=== PATIENT | male | born 2000 | race Two or more races ===

== ENCOUNTER 2022-06-19 08:27 | Emergency (ER) | payer MEDICAID, SELFPAY ==
[2022-06-19 08:36] VITALS: BP 147/64; PULSE 108; RESP 16; TEMP 37.9; O2SAT 99; BMI 22.8
--- NOTE | 2022-06-19 08:55 | ED_ITS ---
HPI - URI/Sore Throat General Chief Complaint: Upper Respiratory Symptoms Stated Complaint: sore throat, stuffy nose Time Seen by Provider: 06/19/22 08:41 Source: patient Mode of arrival: ambulatory Limitations: no limitations History of Present Illness HPI Narrative: Patient is a 22-year-old male presents emergency department for evaluation of sore throat and nasal congestion since yesterday. Reports that his brother is ill at home with similar symptoms as well. Denies fevers, chills, ear pain, inability to swallow, chest pain, shortness of breath, cough, nausea, vomiting, abdominal pain, myalgias, generalized weakness. Related Data Allergies Allergy/AdvReac Type Severity Reaction Status Date / Time No Known Allergies Allergy Verified 06/19/22 08:42 Review of Systems Review of Systems: Constitutional: No fever. No chills. No weakness. No fatigue. ENT/ Mouth: No Ear Pain, positive Nasal Congestion, positive sore throat, No Rhinorrhea, No Swallowing Difficulty Skin: No rash or itching. Cardiovascular: No chest pain. No palpitations. Respiratory: No shortness of breath. No cough. No sputum production. Gastrointestinal: No nausea. No vomiting. No diarrhea. No abdominal pain. Genitourinary: No burning micturition. No urinary frequency. Neurologic: No headache. No dizziness. No syncope. No numbness or tingling in the extremities. Musculoskeletal: No muscle pain. No back pain. No joint pain or stiffness. Yes all other systems are reviewed and are negative PMFSH Past Medical History Attestation statement: The following information was validated with the patient. Source: old records reviewed Social History Social History Advance Directives: No Physical Exam Vital Signs: Vital Signs: Last Vital Signs Temp 100.2 F 06/19/22 08:36 Pulse 108 H 06/19/22 08:36 Resp 16 06/19/22 08:36 BP 147/64 H 06/19/22 08:36 Pulse Ox 99 06/19/22 08:36 O2 Del Method 06/19/22 08:36 BMI result Body Mass Index 22.8 Vital signs have been reviewed as normal and appeared to be correct. Blood pressure normal.? Heart rate normal.? Respiration rate normal. Temperature normal.? Oxygen saturation normal. Appearance: Alert.?Oriented to person, place and time. No acute distress.?Normal affect. Eyes: Pupils equal, round and reactive to light.? ENT: TM normal bilaterally. Pharynx erythematous without tonsillar hypertrophy or exudate, uvula midline. No trismus. No drooling. Neck: Normal inspection.? Neck supple.??No cervical adenopathy CVS: Heart sounds normal. Normal heart rate and rhythm.? Pulses normal.?? Respiratory: No respiratory distress.? Lung sounds clear to auscultation bilaterally?? Abdomen: Soft and non-tender. Normoactive bowel sounds. Skin: Skin warm and dry.? Normal skin color.? ? Extremities: No lower extremity edema.? Neuro: Moves all extremities spontaneously. Sensation intact bilaterally. No motor deficits. Ambulates with normal steady gait. Medical Decision Making Medical Decision Making [facility] Narrative: Patient is a 22-year-old male with no reported past medical history, presenting for evaluation of upper respiratory symptoms. COVID-19 testing negative. Influenza testing positive, contacted at home phone number and made aware of this result, declined Tamiflu. At this time history and physical exam not consistent with peritonsillar abscess, retropharyngeal abscess, pneumonia. Well-appearing, nontoxic, low grade temp, mild tachycardia or tachypnea/hypoxia. No systemic symptoms. Speaking clear full sentences, ambulatory with steady gait. Discussed conservative treatment including rest, hydration, Tylenol/ibuprofen as needed for fever and body aches, saline nasal spray, humidifier, [id number] cold medication. Advised to follow-up with primary care provider as needed, discussed reasons to return back to the emergency department. All questions were answered. Patient discharged home in stable condition. Provided with a return to work note. Differential Diagnosis Differential Diagnoses: The differential diagnosis associated with the presentation includes (COVID-19, influenza, upper respiratory virus, peritonsillar abscess, retropharyngeal abscess) Lab Data [facility] Lab Attestation statement: I reviewed the patient's lab results. Labs: Lab Results 06/19/22 06/19/22 Range/Units 08:39 08:39 COVID-19 ([facility]) Negative (Negative) COVID-19 Clin Com See Note Influenza Type A ([facility]) Positive A (Negative) Influenza Type B ([place]) Negative (Negative) Influenza A & B Note See Note Discharge Plan Discharge Clinical Impression: Influenza Patient Disposition: Home, Self-Care Instructions: Upper Respiratory Infection (ED), Influenza (ED) Additional Instructions: Be sure to rest, stay well hydrated drinking plenty of fluids, eat small frequent meals. Tylenol/ibuprofen can be used as needed for fever/pain. Cnzj-[id number]-[id number] cold medications may be helpful as well for symptoms. Saline nasal spray, humidifier may be helpful for nasal congestion. You may return to the emergency department with any new or worsening symptoms or concerns. Follow-up with your primary care provider as needed. Should remain out of school/ work until symptoms have resolved and have been without a fever for 24 hours without the use of Tylenol or ibuprofen. Referrals: Physician,None [Primary Care Provider] - Stand Alone Forms: Work/School Release Interventions: ED Discharge Assessment Last Done: 06/19/22 09:02 Discharge Date/Time: 06/19/22 09:03
[2022-06-19 08:58] LABS: COVID-19 Test Negative (Negative); IDNOW Serial# 16C4AD1C
[2022-06-19 09:00] LABS: IDNOW Serial# BCCEAD1C; Influenza A Positive (Negative); Influenza B2 Negative (Negative)
== END 2022-06-19 09:03 | disposition home or self-care (01) ==
PROVIDERS: Emergency Provider Student in an Organized Health Care Education/Training Program
DX: J11.1 Influenza due to unidentified influenza virus with other respiratory manifestations (principal); Z20.822 Contact with and (suspected) exposure to COVID-19
CPT/HCPCS: 87502; 87635; 99283

== ENCOUNTER 2023-03-04 09:37 | Emergency (ER) | payer MEDICAID, SELFPAY ==
[2023-03-04 09:46] VITALS: BP 143/86; PULSE 72; RESP 18; TEMP 37.3; O2SAT 99; BMI 23.2
[2023-03-04 10:20] LABS: IDNOW Serial# 08D9AD1C; IDNOW Serial# BCCEAD1C; Strep A Nucleic Acid Negative (Negative)
[2023-03-04 10:21] LABS: COVID-19 Test Negative (Negative)
[2023-03-04 11:01] LABS: Monotest Negative (Negative)
[2023-03-04 11:11] VITALS: BP 114/70; PULSE 51; RESP 12; O2SAT 99
--- NOTE | 2023-03-04 11:26 | ED.URI ---
HPI - URI/Sore Throat General Chief Complaint: Upper Respiratory Symptoms Stated Complaint: R ear pain/Sore throat Time Seen by Provider: 03/04/23 09:47 Source: patient and RN notes reviewed Mode of arrival: ambulatory Limitations: no limitations History of Present Illness HPI Narrative: This is a 23-year-old male, with a history of asthma, presenting to the emergency department with complaints of sore throat, right ear blockage, and fatigue x 2 days. Patient reports that he has been taking [id number] cold medication without any relief. Denies any sick contacts. He denies any fevers, chills chest pain, shortness of breath abdominal pain, nausea or vomiting. He admits to having some diarrhea, denies any bloody or black stool. Reports a slight cough however reports that this has resolved since today. Denies any other complaints or concerns at this time. MD elicited complaint: cough, sore throat, rhinorrhea and nasal congestion Onset (ago): day(s) Consistency: constant Description of mucous: clear and watery Able to tolerate fluids by mouth: Yes Exacerbating factors: nothing Relieving factors: OTC cold medicine Associated symptoms: nasal congestion, sore throat and diarrhea Treatments prior to arrival: cold medicine Related Data Allergies Allergy/AdvReac Type Severity Reaction Status Date / Time No Known Allergies Allergy Verified 03/04/23 09:51 Review of Systems Review of Systems: Yes all other systems are reviewed and are negative Constitutional: Constitutional: Reports as per HPI [facility] Social History Social History Smoked in Last 30 Days: No Use of substances other than those prescribed or required for medical reasons: No Advance Directives: No Physical Exam Vital Signs: Vital Signs: Last Vital Signs Temp 99.1 F 03/04/23 09:46 Pulse 51 03/04/23 11:11 Resp 12 03/04/23 11:11 BP 114/70 03/04/23 11:11 Pulse Ox 99 03/04/23 11:11 O2 Del Method Room Air 03/04/23 11:11 BMI result Body Mass Index 23.2 Const: General: cooperative, comfortable and no acute distress Orientation/consciousness: patient oriented x3 Limitations: no limitations HEENT: Other: Oropharynx is mildly erythematous, no tonsillar hypertrophy or exudates. Uvula is midline. Head: Yes normal to inspection, Yes normocephalic and Yes atraumatic Ears: hearing grossly normal bilaterally and TM's normal bilaterally General nose exam: Normal external nose present Face and sinus: Yes normal facial exam Mouth: Normal oral and palatal mucosa present, oropharynx normal and moist mucous membranes Throat: Yes posterior oropharynx normal Eyes: General: appearance normal, both eyes and all related structures Eyelids: Yes eyelids normal Conjunctivae: conjunctivae normal Sclerae: sclerae normal Pupils: Equal, round and reactive pupils present EOM: EOMs intact bilaterally Neck: Other: Right-sided anterior cervical lymphadenopathy noted. Neck: Yes normal visual inspection, Yes full ROM and Yes no lymphadenopathy Lymphatic: no lymphadenopathy noted Chest: Chest palpation & inspection: normal inspection of the chest Resp: Effort & Inspection: normal respiratory effort and able to speak in complete sentences Auscultation: clear to auscultation bilaterally, no crackles, no rales, no rhonchi and no wheezes Cardio: Rate: regular rate Rhythm: regular rhythm Heart sounds: S1 normal heart sound present and S2 normal heart sound present GI: Inspection: Yes normal to inspection Skin: General skin exam: no rashes or lesions noted Trauma: no lacerations or abrasions Wounds: no wounds Neuro: General: patient oriented x3 and moves all extremities Cranial nerves: Yes Equal, round and reactive pupils present Extrem: General: Yes normal to inspection Right upper extremity: normal to inspection Left upper extremity: normal to inspection Right lower extremity: normal to inspection Left lower extremity: normal to inspection Course Reevaluation(s) Reevaluation #1: Patient is nontoxic appearing, handling oral secretions well without difficulty. Patient's symptoms likely viral in nature. A viral swabs and mono was ordered out triage, influenza test was not performed. Influenza test was performed, and we will call patient for his results once they return. Advised patient to treat symptoms conservatively and patient does not need antibiotics at this time. Patient understands and agrees with plan. Given return precautions. Patient stable for discharge. Time: 11:39 Medical Decision Making Medical Decision Making [facility] Narrative: 23-year-old male presenting to the emergency department for evaluation of sore throat, right-sided neck pain, right ear blockage. On arrival patient mildly hypertensive at 143/86, improved to 1 14/70. Patient is afebrile. Patient is nontoxic appearing. Patient has a mildly erythematous throat. Differential diagnoses include acute pharyngitis, strep pharyngitis, influenza, COVID, meningitis-unlikely given no meningeal signs and full range of motion of the neck. [place] was also considered. Plan: COVID, mono screen, strep testing Differential Diagnosis Differential Diagnoses: The differential diagnosis associated with the presentation includes See above Lab Data [facility] Lab Attestation statement: I reviewed the patient's lab results. Negative Labs: Lab Results 03/04/23 03/04/23 03/04/23 Range/Units 09:57 09:57 09:57 COVID-19 ([facility]) Negative (Negative) COVID-19 Clin Com See Note Monoscreen Negative (Negative) S. pyogenes GrpA [facility] Negative (Negative) Radiology Impression Discussion of test interpretation with radiology: I have reviewed the radiologist's reading. External Record Review External record reviewed: Inpatient record, Office record, Outpatient record, Prior outpatient labs, Prior outpatient radiology, Primary care record and Outside ED record Discharge Plan Discharge Clinical Impression: Upper respiratory infection Patient Disposition: Home, Self-Care Instructions: Upper Respiratory Infection (ED) Additional Instructions: Your symptoms are likely due to a virus, you do not need antibiotics at this time. Your symptoms will likely resolve on its own. You tested negative for COVID, strep throat, and mono. We swabs you for influenza as well, I will call you with these results later this afternoon. Please take ibuprofen or Tylenol as needed for your symptoms. Drink plenty of fluids and get plenty of rest. If any new or worsening symptoms occur, please return for re-evaluation. Follow-up with your primary care physician Stand Alone Forms: Work/School Release
--- NOTE | 2023-03-04 11:38 | PC.NURSE ---
aox4 calm cooperative no distress
[2023-03-04 12:20] LABS: IDNOW Serial# BCCEAD1C; Influenza A Negative (Negative); Influenza B2 Negative (Negative)
== END 2023-03-04 11:46 | disposition home or self-care (01) ==
PROVIDERS: Physician Assistant Medical; Emergency Provider Student in an Organized Health Care Education/Training Program
DX: J02.8 Acute pharyngitis due to other specified organisms (principal); M54.2 Cervicalgia; Z20.822 Contact with and (suspected) exposure to COVID-19; Z20.828 Contact with and (suspected) exposure to other viral communicable diseases; Z79.899 Other long term (current) drug therapy
CPT/HCPCS: 86308; 87502; 87635; 87651; 99283; 99284

== ENCOUNTER 2023-12-16 08:05 | Emergency (ER) | payer SELFPAY ==
--- NOTE | ~2023-12-16 | XR_ITS ---
EXAMINATION: XR CHEST CLINICAL INFORMATION: Cough. Pneumonia. COMPARISON: None available. TECHNIQUE: Frontal view of the chest was obtained. FINDINGS: No significant abnormality is noted involving the heart, lungs, mediastinum, bony thorax or soft tissues. XR/XR chest 1V IMPRESSION: Unremarkable examination.
[2023-12-16 08:18] VITALS: BP 116/63; PULSE 51; RESP 16; TEMP 36.6; O2SAT 99; BMI 23.0
[2023-12-16 08:55] LABS: COVID-19 Test Negative (Negative); IDNOW Serial# 58CA691E; IDNOW Serial# 9DB6401D; Influenza A Negative (Negative); Influenza B2 Negative (Negative)
--- NOTE | 2023-12-16 11:07 | ED_ITS ---
HPI - General Adult General Chief complaint: Upper Respiratory Symptoms Stated complaint: migraine, stomach aches, dry cough, nausea Time Seen by Provider: 12/16/23 10:49 Source: patient Mode of arrival: ambulatory Limitations: no limitations History of Present Illness ED Provider: Victor Hugo Gant PA-C HPI narrative: 23 yold male with pmh of migraines and strep presents to the ED for sore throat, dry cough, and nausea and diarrhea. Patient denies any trauma, dizziness, neck stiffness, rash, blood in stool, severe abdominal pain, or inability to tolerate solid food/ liquid. Patient states good appetite. Related Data Previous Rx's ?Medication ?Instructions ?Recorded amoxicillin 875 mg-potassium 1 tab PO Q12H 10 days #20 tabs 12/16/23 clavulanate 125 mg tablet Allergies Allergy/AdvReac Type Severity Reaction Status Date / Time No Known Allergies Allergy Verified 12/16/23 08:19 Review of Systems Review of Systems: Headache, nausea, sore throat, cough, chills, diarrhea, vomiting Yes all other systems are reviewed and are negative PMFSH Social History Social History Advance Directives: No Physical Exam ED Vital Signs: Vital Signs - 24 hr 12/16/23 08:18 12/16/23 14:14 Temperature 97.8 F 97.8 F Pulse Rate 51 51 Respiratory Rate 16 16 Blood Pressure 116/63 116/63 Pulse Oximetry 99 99 Oxygen Delivery Method Room Air Room Air BMI result Body Mass Index 23.0 Const General: cooperative, healthy appearing, comfortable, no acute distress, well developed, alert, awake and Physically active Orientation/consciousness: oriented to person, oriented to place, oriented to time and patient oriented x3 [facility] Head: Yes normal to inspection, Yes No palpable skull fracture present, Yes normocephalic and Yes atraumatic Ears: hearing grossly normal bilaterally, external ears normal, TM's normal bilaterally, TM normal on the right, TM normal on the left, EAC's normal, mastoids normal and no periauricular adenopathy Throat: Yes posterior oropharynx normal, Yes tonsils normal and Yes uvula midline Eyes General: appearance normal, both eyes and all related structures Neck Neck: Yes normal visual inspection, Yes full ROM, Yes no lymphadenopathy, Yes no meningeal signs, Yes trachea midline, Yes supple, No anterior neck swelling and No tender Chest Chest palpation & inspection: normal inspection of the chest and normal palpation of entire chest wall Resp Effort & Inspection: normal respiratory effort and able to speak in complete sentences Auscultation: clear to auscultation bilaterally Cardio Jugular venous distension: no JVD Heart sounds: S1 normal heart sound present and S2 normal heart sound present GI Inspection: Yes normal to inspection Palpation (GI): Soft to palpation, not firm, nontender, no guarding and not rigid General: No CVA tenderness and Yes no CVA tenderness Back/Spine/Pelvis Back: no CVA tenderness, No CVA tenderness and No back tenderness Skin General skin exam: no rashes or lesions noted, elasticity normal and turgor normal Neuro General: oriented to person, oriented to place, oriented to time, patient oriented x3, gait normal, tone normal, moves all extremities, Normal light touch and pain sensation, no meningeal signs, no focal motor deficits, CN's II-XI intact bilaterally and normal sensation to monofilament Extrem General: Yes normal to inspection, Yes full ROM and Yes capillary refill normal Psych Appearance: grossly normal, well kempt and not disheveled Medical Decision Making Medical Decision Making [facility] Narrative: 22-year-old male presents to the ED for migraine, headache, nausea, coughing, sore throat, and chills. Patient also states diarrhea. Abdominal exam is benign. COVID influenza negative. Strep test ordered chest x-ray ordered. 1:49pm: Chest x-ray results not back. I am not able to look at x-ray picture. Patient informed he needs to wait. Patient states he has to leave. Patient explained risks including from unknown possible pneumonia, hemothorax, pneumothorax due to x-ray not back. Lungs are clear. Patient well-appearing. Patient states similar symptoms in the past of sore throat headache he has strep. Will treat empirically as strep. Three swab sent for strep culture which were invalid. There was done properly. Patient signed AMA form Differential Diagnosis Differential Diagnoses: The differential diagnosis associated with the presentation includes ( Pneumonia, COVID, strep, influenza) Admission/Observation Consideration of admission/observation: Escalation of care including admission /observation considered Lab Data [facility] Lab Attestation statement: I reviewed the patient's lab results. Labs: Lab Results 12/16/23 12/16/23 12/16/23 Range/Units 08:32 11:18 12:52 COVID-19 ([facility]) Negative (Negative) COVID-19 Clin Com See Note Influenza Type A ([facility]) Negative (Negative) Influenza Type B ([facility]) Negative (Negative) Influenza A & B Note See Note S. pyogenes GrpA [place] Invalid Invalid (Negative) Independent Historian Clinical information obtained from an independent historian. History obtained from or confirmed by: Other (patient) External Record Review External record reviewed: Other (patient) Prescription Management I considered prescription management with: Antibiotic Discharge Plan Discharge Clinical Impression: Pharyngitis, Acute viral syndrome Patient Disposition: Left Against Medical Advice Instructions: Pharyngitis (ED), Viral Syndrome (ED) Additional Instructions: you will be treated empirically for strep. You are leaving before chest x-ray results. If you have any chest pain, shortness of breath, weakness, dizziness, drooling, change in voice, headache, dizziness, abdominal pain, or any other concerning symptoms return to the ED immediately. Recommend folllow up with PCP. Prescriptions: New amoxicillin-pot clavulanate 875-125 mg tablet 1 tab PO Q12H 10 Days Qty: 20 0RF Stand Alone Forms: Against Medical Advice, Work/School Release Interventions: ED Discharge Assessment Last Done: 12/16/23 14:14 Discharge Date/Time: 12/16/23 14:14 Print Language: Haitian
[2023-12-16 12:33] LABS: IDNOW Serial# 08D9AD1C
[2023-12-16 12:35] LABS: Strep A Nucleic Acid Invalid (Negative)
[2023-12-16 13:14] LABS: IDNOW Serial# 08D9AD1C
[2023-12-16 13:16] LABS: Strep A Nucleic Acid Invalid (Negative)
[2023-12-16 14:14] VITALS: BP 116/63; PULSE 51; RESP 16; TEMP 36.6; O2SAT 99
== END 2023-12-16 14:14 | disposition left against medical advice (07) ==
PROVIDERS: Physician Assistant; Emergency Provider Emergency Medicine
DX: J02.9 Acute pharyngitis, unspecified (principal); R05.9 Cough, unspecified; R11.0 Nausea; Z11.52 Encounter for screening for COVID-19; Z79.899 Other long term (current) drug therapy
CPT/HCPCS: 71045; 87502; 87635; 87651; 99282; 99283